=== PATIENT | female | born 1980 | race Caucasian/White ===

== ENCOUNTER 2017-01-02 23:55 | Emergency (ER) | payer MEDICAID, OTHER ==
--- OUTSIDE RECORDS SUMMARY | 2017-01-03 00:54 | XMS REPORT | Continuity of Care Document ---
:1980 Author Organization [facility] [place] [address] Care Team Providers Name Role Phone Juana Gao Primary Care Provider [phone] Source Comments This disclosure is being made pursuant to the [employer] program and maynot contain all information available regarding this patient.[facility] Active Allergies and Adverse Reactions No Known Allergies Current Medications Be aware that medications may not be up to date as of this document. Alwaysverify current medications with the patient. Prescription Sig. Disp. Refills Start Date End Date Status busPIRone (BUSPAR) 5 MG Take 5 mg by Active tablet mouth daily. prazosin (MINIPRESS) 1 Take 1 mg by Active MG capsule mouth nightly. venlafaxine HCl Take 75 mg by Active (EFFEXOR) 75 MG tablet mouth 2 (two) times daily. traZODone (DESYREL) 100 Take 100 mg by Active MG tablet mouth nightly. azithromycin (ZITHROMAX) Take 1 oral 5 tablet 0 11/11/2016 Active 500 MG tablet daily for 5 days gabapentin (NEURONTIN) Take 2 180 capsule 6 11/11/2016 Active 300 MG capsule capsules by mouth 3 (three) times daily. MethylPREDNISolone Follow package 1 Package 0 11/11/2016 Active (MEDROL) 4 MG dosepak directions. albuterol (PROAIR Inhale 2 puffs 1 Inhaler 3 11/11/2016 Active HFA;PROVENTIL into the lungs HFA;VENTOLIN HFA) 108 every 4 (four) (90 Base) MCG/ACT hours as inhaler needed for Wheezing. Active Problems Not on file Most Recent Encounters Date Type Specialty Providers Description 11/11/2016 Office Visit Family Medicine Juana Gao Bronchitis ( Primary PROFESSIONAL SERVICES SPECIALIST Dx); Subacute maxillary sinusitis; Neuropathic pain of both feet (HCC) 11/11/2016 Orders Only Family Medicine Gao, Juana A, Bronchitis PROFESSIONAL SERVICES SPECIALIST Social History Tobacco Use Types Packs/Day Years Used Date Current Every Day Smoker Cigarettes 0.5 Last Filed Vital Signs Vital Sign Reading Time Taken Blood Pressure 113/68 11/11/2016 11:13 AM CDT Pulse 93 11/11/2016 11:13 AM CDT Temperature 35.9 C (96.6 F) 11/11/2016 11:13 AM CDT Respiratory Rate - - Height - - Weight 56.7 kg (125 lb) 11/11/2016 11:13 AM CDT Body Mass Index - - Oxygen Saturation 95% 11/11/2016 11:13 AM CDT Plan of Care Health Maintenance Due Date Last Done Comments Pneumococcal Medium Risk 19-64 yo (1 of 1 - PPSV23) 2000 Tetanus/Pertussis (1 - Tdap) 2000 Pap Smear 2002 Influenza Immunization (#1) 2016 Results from Last 3 Months XR CHEST 2 VIEWS W APICAL LORDOTIC (11/11/2016) Insurance Payer Benefit Plan / Subscriber ID Type Phone Address Group [facility] [id number] Managed [phone] [address] [place] [address] MEDICA[place] [phone] Home: [address] [place], [place] [id number] [place] [address]
--- NOTE | 2017-01-03 01:05 | ERNOTE ---
Upper Extremity HPI - General Extremities Pain Location: shoulder: right Time Seen by Provider: 01/03/17 00:18 Source: patient Exam Limitations: no limitations - Immun/Allergies/Home Medications Immunizations: IMMUNIZATION HX Immunizations Up to Date Yes History of Influenza Vaccine No Hx Pneumococcal Vaccination Yes Allergies/Adverse Reactions: Allergies Allergy/AdvReac Type Severity Reaction Status Date / Time prednisone Allergy Verified 10/08/15 14:18 Home Medications: HOME MEDICATIONS Gabapentin [Gralise] 600 mg PO TID 10/08/15 [Last Taken Unknown] HYDROcodone/ACETAMINOPHEN [Melrude 5-325 Tablet] 1 - 2 tab PO Q6H PRN #20 tab [Last Taken Unknown] busPIRone HCL [Buspar] 5 mg PO TID 10/08/15 [Last Taken Unknown] traZODone HCL [Desyrel] 200 mg PO HS PRN 10/08/15 [Last Taken Unknown] Prazosin HCl [Minipress] 10 mg PO HS 01/02/17 [Last Taken Unknown] Venlafaxine HCl [Effexor] 75 mg PO DAILY 01/02/17 [Last Taken Unknown] Nabumetone 750 mg PO BID #20 tablet 01/03/17 [Last Taken Unknown] - History of Present Illness Narrative: Pt was lifting boxes at work and heard a pop. She then began to have shoulder pain Occurred: this evening Location of Incident: work Severity: moderate Review of Systems - Review of Systems Constitutional: Present: no symptoms reported EYE: Present: no symptoms reported ENT: Present: no symptoms reported Respiratory: Absent: shortness of breath Cardiology: Absent: chest pain Gastrointestinal/Abdominal: Absent: nausea Genitourinary: Present: no symptoms reported Musculoskeletal: Present: no symptoms reported Skin: Present: no symptoms reported Neurological: Present: weakness Endocrine: Present: no symptoms reported Hematologic/Lymphatic: Present: no symptoms reported Psych: Present: no symptoms reported - Patient's Past Medical History Patient History - Medical: Anxiety, Chronic Pain, Depression, Other Patient History - Cardiac/Respiratory: COPD, Pneumonia Patient History - Cancer: No Hx of Cancer Patient History - Surgical Procedures: Appendectomy, , Tubal Ligation Patient History - Other: None - Family History Mother Family History - Medical: Father Family History - Medical: - Social History Living Situations: home Abuse History: No History of abuse Psych History: Hx of Anxiety, Hx of Depression Smoking Status: Current every day smoker Alcohol Use: occasionally Drug Use: none - Immunizations Immunizations Up to Date: Yes Hx Pneumococcal Vaccination: Yes History of Influenza Vaccine: No Physical Exam - Physical Exam General Appearance: Present: wd/wn, alert, mild distress Head Exam: Present: normal inspection, no evidence of injury Eye Exam: Normal inspection: bilateral Neck: Present: normal inspection, nontender, supple Respiratory: Present: no respiratory distress, no accessory muscle use, lungs clear Cardiovascular/Chest: Present: regular rate, rhythm, no murmur Back Exam: Present: normal inspection, normal range of motion, no CVA tenderness , no vertebral tenderness Extremity Exam: Present: normal range of motion - right elbow and wrist, decreased range of motion - right shoulder, other - Tenderness of the right shoulder especially along the supraspinatus. Bicepital tendon non-tender Neurological Exam: Present: alert, oriented Skin Exam: Present: normal color, warm/dry Lymphatic Exam: Present: no adenopathy ED Progress - Vital Signs Vital Signs: Vital Signs 01/03/17 00:01 Temperature 37.1 C Pulse Rate 93 Respiratory 16 Rate Blood Pressure 109/70 O2 Sat by Pulse 97 Oximetry - X-Ray X-Ray #1 X-Ray: shoulder Interpretation: Interp. by me X-ray Comments: No fracture, no dislocation - Progress/Reassessment Chief Complaint: Upper Extremity Injury/Problem Departure Clinical Impression: Right shoulder strain Qualifiers: Encounter type: initial encounter Qualified Code(s): S46.911A - Strain of unspecified muscle, fascia and tendon at shoulder and upper arm level, right arm , initial encounter - Departure Disposition: Home Follow Up Needed Condition: Good Instructions: Shoulder Sprain Additional Instructions: call occupational health in the morning to set up follow up treatment. Use shoulder sling for 2-3 days or as directed by occupational health Prescriptions: Nabumetone 750 mg PO BID #20 tablet
[2017-01-03] MEDS ORDERED: KETOROLAC TROMETHAMINE 60 MG/2 ML VIAL IM ONE ×2 (01:41)
[2017-01-03 02:31] VITALS: BP 110/69
== END 2017-01-03 01:50 | disposition home or self-care (01) ==
LOC: ER 23:55
DX: S46.911A Strain of unspecified muscle, fascia and tendon at shoulder and upper arm level, right arm, initial encounter (principal); X50.0XXA Overexertion from strenuous movement or load, initial encounter; Y93.9 Activity, unspecified; Y92.9 Unspecified place or not applicable; Y99.0 Civilian activity done for income or pay; F41.8 Other specified anxiety disorders; G89.29 Other chronic pain; J44.9 Chronic obstructive pulmonary disease, unspecified

== ENCOUNTER 2017-01-21 14:23 | Emergency (ER) | payer OTHER, MEDICAID ==
--- OUTSIDE RECORDS SUMMARY | 2017-01-21 14:46 | XMS REPORT | Clinical Summary ---
:1980 Author Organization [facility] Address Unavailable [place] [address] Care Team Providers Name Role Phone Unavailable Primary Care Provider Unavailable Source Comments This disclosure is being made pursuant to the [employer] program and maynot contain all information available regarding this patient.[facility] Allergies No Known Allergies Current Medications Be aware [...] 5 tablet 0 11/11/2016 Active 500 MG daily for 5 tabletIndications:Bronch days itis gabapentin (NEURONTIN) Take 2 180 capsule 6 11/11/2016 Active 300 MG capsules by capsuleIndications:Neuro mouth 3 pathic pain of both feet (three) times (HCC) daily. MethylPREDNISolone Follow package 1 Package 0 11/11/2016 Active (MEDROL) 4 MG directions. dosepakIndications:Bronc hitis albuterol (PROAIR Inhale 2 puffs 1 Inhaler 3 11/11/2016 Active HFA;PROVENTIL into the lungs HFA;VENTOLIN HFA) 108 every 4 (four) (90 Base) MCG/ACT hours as inhalerIndications:Bronc needed for hitis Wheezing. Active Problems Not on file Encounters Date Type Specialty Care Team Description 11/11/2016 Office Visit Family Medicine Juana Gao, Bronchitis ( Primary Dx); PANEL COVERER Subacute maxillary sinusitis; Neuropathic pain of both feet (HCC) 11/11/2016 Orders Only Family Medicine Juana Gao A, Bronchitis PANEL COVERER from Last 3 Months Social History Tobacco Use Types Packs/Day Years Used Date Current Every Day Smoker Cigarettes 0.5 Sex Assigned at Date Recorded Not on file Last Filed Vital Signs Vital Sign Reading Time Taken Blood Pressure 113/68 11/11/2016 11:13 AM CDT Pulse 93 11/11/2016 11:13 AM CDT Temperature 35.9 C (96.6 F) 11/11/2016 11:13 AM CDT Respiratory Rate - - Oxygen Saturation 95% 11/11/2016 11:13 AM CDT Inhaled Oxygen Concentration - - Weight 56.7 kg (125 lb) 11/11/2016 11:13 AM CDT Height - - Body Mass Index - - Plan of Treatment Health Maintenance Due Date Last Done Comments Pneumococcal Medium Risk 19-64 yo (1 of 1 - PPSV23) 2000 Tetanus/Pertussis (1 - Tdap) 2000 Pap Smear 2002 INFLUENZA IMMUNIZATION (#1) 2017 Results XR CHEST 2 VIEWS W APICAL LORDOTIC (11/11/2016) Specimen Performing Laboratory EXTERNAL NON UPH RAD - NO INTERFACE from Last 3 Months Insurance Payer Benefit Plan / Subscriber ID Type Phone Address Group [facility] [id number] [facility] [phone] [address] [place] [id number] [place] [phone] [place] [phone]
[2017-01-21] MEDS ORDERED: KETOROLAC TROMETHAMINE 60 MG/2 ML VIAL IM ONE ×2 (14:47→14:48)
--- OUTSIDE RECORDS SUMMARY | 2017-01-21 14:47 | XMS REPORT | Encounter Summary ---
:1980 Author Organization [facility] [place] [address] Care Team Providers Name Role Phone Unavailable Primary Care Provider Unavailable Encounter Details Date Type Department Care Team Description 11/11/2016 Orders Only [facility] Juana Gao NP Bronchitis [address] [place] [address] [phone] Social History Tobacco Use Types Packs/Day Years Used Date Current Every Day Smoker Cigarettes 0.5 Sex Assigned at Date Recorded Not on file as of this encounter Plan of Treatment Not on fileas of this encounter Results XR CHEST 2 VIEWS W APICAL LORDOTIC (11/11/2016) Specimen Performing Laboratory EXTERNAL NON UPH RAD - NO INTERFACE in this encounter Visit Diagnoses Diagnosis Bronchitis Bronchitis, not specified as acute or chronic in this encounter
--- OUTSIDE RECORDS SUMMARY | 2017-01-21 14:47 | XMS REPORT | Encounter Summary ---
:1980 Author Organization [facility] [place] [address] Care Team Providers Name Role Phone Unavailable Primary Care Provider Unavailable Reason for Visit Reason Comments URI for 3 days Encounter Details Date Type Department Care Team Description 11/11/2016 Office Visit [facility] Juana Gao Bronchitis (Primary Dx); Tee Singh NP Subacute maxillary sinusitis; [address] [place] [address] Neuropathic pain of both feet (HCC) [place] [address] [place], [place] [id number] Social History Tobacco Use Types Packs/Day Years Used Date Current Every Day Smoker Cigarettes 0.5 Sex Assigned at Date Recorded Not on file as of this encounter Last Filed Vital Signs Vital Sign Reading [...] - - Body Mass Index - - in this encounter Instructions Patient Instructions - Juana Gao NP - 11/11/2016 11:32 AM CDTFollow up if no betterin this encounter Progress Notes Chirag Katz DO - 11/11/2016 2:29 PM CDTI was the collaborating physicians for this encounter. Angelo Tamayo Patricia A, NP - 11/11/2016 11:15 AM CDTFormatting of this note may be different from the original. Subjective: Patient ID: Gely Nevarez is a 36 y.o. female. URI This is a new problem. The current episode started in the past 7 days. The problem has been gradually worsening. The maximum temperature recorded prior to her arrival was 100.4 - 100.9 F. The fever has been present for less than 1 day. Associated symptoms include congestion, coughing, headaches, rhinorrhea and wheezing. She has tried antihistamine and decongestant for the symptoms. The treatment provided no relief. Patient's problem list, medications, allergies, past medical, surgical, social and family histories were reviewed and updated as appropriate. Review of Systems Constitutional: Positive for fatigue. HENT: Positive for congestion and rhinorrhea. Eyes: Negative. Respiratory: Positive for cough and wheezing. Cardiovascular: Negative. Gastrointestinal: Negative. Endocrine: Negative. Genitourinary: Negative. Musculoskeletal: Negative. Neurological: Positive for headaches. Objective: BP 113/68 mmHg | Pulse 93 | Temp(Src) 35.9 C (96.6 F) | Wt 56.7 kg (125 lb) | SpO2 95% There is no height on file to calculate BMI. Physical Exam Ears wnl of tms Nares red and swollen Pharynx is red and large amount of thick white secretions Lymph nodes no enlargement Lungs congested and wheezing throught out lung chan Heart RRR no murmur Assessment/Orders: Diagnoses and all orders for this visit: Bronchitis - azithromycin (ZITHROMAX) 500 MG tablet; Take 1 oral daily for 5 days - MethylPREDNISolone (MEDROL) 4 MG dosepak; Follow package directions. - albuterol (PROAIR HFA;PROVENTIL HFA;VENTOLIN HFA) 108 (90 Base) MCG/ACT inhaler; Inhale 2 puffs into the lungs every 4 (four) hours as needed for Wheezing. - XR CHEST 2 VIEWS W APICAL LORDOTIC; Future Subacute maxillary sinusitis Neuropathic pain of both feet (HCC) - gabapentin (NEURONTIN) 300 MG capsule; Take 2 capsules by mouth 3 (three) times daily. Plan: Follow up if no better in this encounter Plan of Treatment Not on fileas of this encounter Results XR CHEST 2 VIEWS W APICAL LORDOTIC (11/11/2016) Specimen Performing Laboratory EXTERNAL NON UPH RAD - NO INTERFACE in this encounter Visit Diagnoses Diagnosis Bronchitis - Primary Bronchitis, not specified as acute or chronic Subacute maxillary sinusitis Acute maxillary sinusitis Neuropathic pain of both feet (HCC) in this encounter"
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
[2017-01-21 14:59] VITALS: BP 111/75
== END 2017-01-21 14:57 | disposition home or self-care (01) ==
LOC: ER 14:23
DX: M25.511 Pain in right shoulder (principal)